=== PATIENT | female | born 1995 | race Caucasian/White ===

== ENCOUNTER 2016-12-05 05:30 | Emergency (ER) | payer BC ==
[~2016-12-05] VITALS: Ht 175.3 cm; Wt 72.6 kg
[~2016-12-05 05:30] MED LIST: BIRTH CONTROL; CIPRO 500MG TA500 MG; FLEXERIL 1010 MG/TAB PO; FLEXERIL5 MG PO; MACROBID 1100 MG/CAP PO; NORCO 325 MG-51 TAB PO; ORSYTHIA 0.02 M1 TAB PO; PHENERGAN 25 TA25 MG PO; TYLENOL W/COD1 UDTAB PO; VOLTAREN 75 DR75 MG PO; ZOFRAN 4MG T4 MG/TAB
[2016-12-05 05:33] VITALS: BP 140/97; PULSE 85; TEMP 98.1
[2016-12-05] MEDS ORDERED: FLEXERIL 1010 MG/TAB PO (06:14)
[2016-12-05] MEDS ORDERED: TYLENOL W/COD1 UDTAB PO (06:14)
[2016-12-05] MEDS ORDERED: VOLTAREN 75 DR75 MG PO (06:14)
== END 2016-12-05 07:10 | disposition home or self-care (01) ==
LOC: COL.ER 05:30
DX: S43.492A Other sprain of left shoulder joint, initial encounter (principal); X58.XXXA Exposure to other specified factors, initial encounter
CPT/HCPCS: J3010; J7512

== ENCOUNTER 2017-12-23 12:13 | Emergency (ER) | payer OTHER ==
[~2017-12-23] VITALS: Ht 172.7 cm; Wt 72.7 kg
[2017-12-23 12:16] VITALS: BP 137/76; TEMP 98.8
[2017-12-23 13:10] VITALS: PULSE 76
== END 2017-12-23 13:22 | disposition home or self-care (01) ==
LOC: COL.ER 12:13
DX: S61.212A Laceration without foreign body of right middle finger without damage to nail, initial encounter (principal); Z23 Encounter for immunization; Z98.818 Other dental procedure status; Z88.1 Allergy status to other antibiotic agents; Z88.8 Allergy status to other drugs, medicaments and biological substances; W26.0XXA Contact with knife, initial encounter; Y92.89 Other specified places as the place of occurrence of the external cause; Y99.0 Civilian activity done for income or pay